=== PATIENT | male | born 1950 | race Caucasian/White ===

== ENCOUNTER 2017-06-09 10:29 | Outpatient (CLI) | payer MEDICARE, BC ==
[2017-06-09 11:27] LABS: eGFR (African) > 60; eGFR (Non-African) > 60
[2017-06-09 21:03] LABS: MAGNESIUM 2.3 mg/dL (1.6-2.6)
== END 2017-06-09 10:35 ==
LOC: LAB 10:29
PROVIDERS: ATTEND Clinical Nurse Specialist Medical-Surgical
DX: M17.0 Bilateral primary osteoarthritis of knee (principal); E66.9 Obesity, unspecified; E11.9 Type 2 diabetes mellitus without complications; E55.9 Vitamin D deficiency, unspecified; E78.2 Mixed hyperlipidemia
CPT/HCPCS: 36415; 80053; 82306; 82465; 83718; 83735; 84100; 84478; 84550

== ENCOUNTER 2017-12-08 11:23 | Outpatient (CLI) | payer MEDICARE, BC ==
[2017-12-08 17:00] LABS: TOTAL PROTEIN 6.5 g/dL (6.0-8.5)
== END 2017-12-08 11:24 ==
LOC: LAB 11:23
PROVIDERS: ATTEND Clinical Nurse Specialist Medical-Surgical
DX: M17.0 Bilateral primary osteoarthritis of knee (principal); E66.9 Obesity, unspecified; E11.9 Type 2 diabetes mellitus without complications; E55.9 Vitamin D deficiency, unspecified; E78.2 Mixed hyperlipidemia
CPT/HCPCS: 36415; 80053; 82465; 83036; 83735; 84100; 84550